=== PATIENT | male | born 1980 | race Caucasian/White ===

== ENCOUNTER 2016-09-28 17:58 | Inpatient (IN) | payer OTHER, BC ==
[~2016-09-28] VITALS: Ht 175.3 cm; Wt 118.8 kg
[2016-09-28 18:48] LABS: EOSINOPHIL (%) 0.8 % (0-5); EOSINOPHIL COUNT 0.1 K/uL (0-0.3); HEMATOCRIT 50.1 % (38.0-50.0); IMMATURE GRANULOCYTE (%) 0.4 % (0.0-0.7); IMMATURE GRANULOCYTE COUNT 0.1 K/uL; INSTRUMENT ABS NEUTROPHIL CT 9.5 K/uL; LYMPHOCYTE COUNT 3.1 K/uL (1.0-2.8); MCH 28.9 PG (29.0-34.0); MCHC 33.7 G/DL (30.0-36.0); MCV 85.6 FL (86-99); MONOCYTE (%) 8.9 % (3-12); MONOCYTE COUNT 1.3 K/uL (0-0.8); NEUTROPHIL (%) 67.7 % (45-76); NEUTROPHIL COUNT 9.5 K/uL (1.8-6.4); RBC DIS.WIDTH-CV 12.3 % (11.8-14.6); RBC DIS.WIDTH-SD 38.4 % (39-53); RED BLOOD COUNT 5.85 M/uL (4.00-5.50); WHITE BLOOD COUNT 14.1 K/uL (4.1-10.2)
[2016-09-28 19:13] LABS: AMYLASE 42 IU/L (1-118); CHLORIDE 105 mEq/L (99-109); POTASSIUM 4.7 mEq/L (3.7-5.4)
[2016-09-28 19:14] LABS: SODIUM 140 mEq/L (136-147)
[2016-09-28 19:15] LABS: GLUCOSE 111 mg/dL (70-99)
[2016-09-28 19:17] LABS: ANION GAP 14 MEQ/L (2-14)
[2016-09-28 19:18] LABS: SERUM ETHYL ALCOHOL < 10 mg/dL
[2016-09-28 19:19] LABS: GFR ESTIMATE (CALCULATED) > 59 mL/min/
[2016-09-28 19:20] LABS: UREA NITROGEN (BUN) 12 mg/dL (9-23)
[2016-09-28 19:22] LABS: LIPASE 20 U/L (1.0-51.0)
[2016-09-28 19:56] LABS: ADD MIUA? NO; BILIRUBIN NEGATIVE; BLOOD NEGATIVE; COLOR STRAW ((YELLOW)); GLUCOSE (STRIP) NEGATIVE; KETONES NEGATIVE; LEUKOCYTES NEGATIVE; NITRITE NEGATIVE; PROTEIN (STRIP) NEGATIVE; SPECIFIC GRAVITY 1.019 (1.000-1.030); UCUL ADDED? NO; UROBILINOGEN 0.2 MG/DL (0.2-1.0)
[2016-09-28] MEDS ORDERED: GLUCOSAMINE CH1 EAC2 PO (19:56)
[2016-09-28] MEDS ORDERED: MEN'S MULTI-VI1 EACH PO (19:56)
[2016-09-28] MEDS ORDERED: [UNRECOGNIZED DRUG - OTHER] BOTH EYES (19:57)
[2016-09-28 20:12] LABS: PLATELET CLUMPS PRESENT - PLATELET COUNT APPEARS ADQ.; PLATELET COUNT UNABLE TO REPORT K/uL (156-360)
[2016-09-28 20:15] LABS: AMPHETAMINE NEGATIVE (500 ng/mL); BARBITURATES NEGATIVE (200 ng/mL); BENZODIAZEPINES NEGATIVE (150 ng/mL); COCAINE NEGATIVE (150 ng/mL); INTERNAL CONTROLS VALID? YES; METHADONE NEGATIVE (200 ng/mL); METHAMPHETAMINE NEGATIVE (500 ng/mL); OPIATES (MORPHINE) NEGATIVE (100 ng/mL); OXYCODONE NEGATIVE (100 ng/mL); PHENCYCLIDINE NEGATIVE (25 ng/mL); PROPOXYPHENE NEGATIVE (300 ng/mL); THC CANNABINOIDS NEGATIVE (50 ng/mL); TRICYCLIC ANTIDEPRESSANTS NEGATIVE (300 ng/mL)
[2016-09-29] VITALS (7 sets, daily range): BP systolic 140–180; BP diastolic 67–95
[2016-09-29] MEDS ORDERED: LOVENOX40 MG/0.4 SC (16:36)
[2016-09-29] MEDS ORDERED: ENDOCET 5-3251 EACH PO (16:36)
[2016-09-30 00:40] VITALS: BP 166/95
[2016-09-30 03:58] VITALS: BP 155/81
[2016-09-30 08:10] VITALS: BP 157/93
[2016-09-30 11:20] VITALS: BP 144/88
== END 2016-09-30 13:20 | disposition home or self-care (01) | DRG 494 ==
LOC: TRA 17:58 → SDC 20:50 → TRA 20:50 → 3EAST 23:19 → 2SOUTH 23:19 → 3EAST 09-29 01:20
PROVIDERS: Emergency Medicine
PROC: 0QSG06Z Reposition Right Tibia with Intramedullary Internal Fixation Device, Open Approach (ICD-10-PCS; principal; 2016-09-28)
DX: S82.221B Displaced transverse fracture of shaft of right tibia, initial encounter for open fracture type I or II (principal); I10 Essential (primary) hypertension; S82.421B Displaced transverse fracture of shaft of right fibula, initial encounter for open fracture type I or II; E78.5 Hyperlipidemia, unspecified; V89.2XXA Person injured in unspecified motor-vehicle accident, traffic, initial encounter; Y92.410 Unspecified street and highway as the place of occurrence of the external cause
CPT/HCPCS: 71260; 72125; 73090; 73590; 73600; 74177; 76000; 80048; 81003; 82150; 83690; 85025; 86900; 86901; C1713; G0480; J0690; J1170; J1650; J2270; J2405; J3010; J7050